=== PATIENT | female | born 1965 | race Caucasian/White ===

== ENCOUNTER → 2021-03-09 | Outpatient (CLI) | payer OTHER | LOC: M SLEEP HO 10:36 | PROVIDERS: ATTEND Physician Assistant | DX: G47.9 Sleep disorder, unspecified (principal) ==

== ENCOUNTER → 2025-07-16 | Outpatient (CLI) | payer OTHER | LOC: M PLAIMG 10:20 | PROVIDERS: ATTEND Physician Assistant | DX: I34.0 Nonrheumatic mitral (valve) insufficiency (principal) ==